=== PATIENT | male | born 1985 | race Caucasian/White ===

== ENCOUNTER 2021-04-09 18:33 | Emergency (ER) | payer SELFPAY ==
[~2021-04-09] VITALS: Ht 180.3 cm; Wt 73.5 kg
[~2021-04-09 18:33] MED LIST: ALPR1TAB2 PO; ALPR2TAB1 PO
[2021-04-09 18:51] VITALS: BP 126/77
[2021-04-09] MEDS ORDERED: IBUPROFEN 600 MG TAB PO ONE (19:30)
[2021-04-09] MEDS ORDERED: HYDROcodone/APAP 5/325 MG 1 TAB TAB PO ONE (19:30)
[2021-04-09] MEDS ORDERED: AMOXIL/CLAVULANATE 875/125 MG 1 TAB PO ONE (19:30)
[2021-04-09] MEDS ORDERED: ACET-8386 PO (19:39)
[2021-04-09] MEDS ORDERED: AMOX-1000 PO (19:39)
[2021-04-09] MEDS ORDERED: IBUP-2213 PO (19:39)
[2021-04-09 20:44] VITALS: BP 126/77
--- NOTE | 2021-04-09 20:44 | NUR ---
PT SEEN AND ASSESSED BY ERMD. NO NURSING INTERVENTIONS NEEDED
--- NOTE | 2021-04-09 20:45 | NUR ---
Patient discharged with v/s stable. Written and verbal after care instructions given and explained. Patient verbalized understanding. Ambulatory with steady gait. All questions addressed prior to discharge. Advised to follow up with PMD.
== END 2021-04-09 20:45 | disposition home or self-care (01) ==
LOC: MED 18:33
DX: K13.79 Other lesions of oral mucosa (principal); J45.909 Unspecified asthma, uncomplicated; I10 Essential (primary) hypertension; Z98.890 Other specified postprocedural states; Z79.899 Other long term (current) drug therapy
CPT/HCPCS: 99284